=== PATIENT | male | born 1990 | race Caucasian/White ===

== ENCOUNTER 2020-10-24 16:44 | Emergency (ER) | payer OTHER ==
--- NOTE | 2020-10-24 18:13 | ED Physician Documentation ---
History of Present Illness - Stated complaint Stated Complaint: CHEST TIGHTNESS - Chief complaint Chief Complaint: Cardiac - History obtained from History obtained from: Patient - History of Present Illness Timing: Today Pain level max: 0 Pain level now: 0 - Additonal information Additional information: Patient is a 30-year-old male who presents to the emergency department with palpitations and the feeling that he cannot get a full breath. This been ongoing intermittently for the past week or so. He has recently traveled to [place] and back. This was occurring there, states he had a work-up in the emergency department twice and was treated for anxiety. He states that sometimes his hands and arms cramp and he feels numbness across his chest. He states he is under increased stress, but states it is "good stress". He states he does not have a history of anxiety. No leg pain. No history of blood clots. He states he does not have any chest pain. Review of Systems Ten Systems: 10 systems reviewed and negative Constitutional: denies: Fever, Chills Eyes: denies: Photophobia Ears: denies: Ear pain Nose: denies: Rhinorrhea / runny nose, Congestion Throat: denies: Sore throat Respiratory: denies: Cough GI: denies: Abdominal Pain, Nausea, Vomiting, Diarrhea : denies: Dysuria Skin: denies: Rash Musculoskeletal: denies: Neck pain, Back pain Neurologic: denies: Headache PD PAST MEDICAL HISTORY - Past Medical History Past Medical History: Yes Psych: Anxiety - Past Surgical History Past Surgical History: No - Present Medications Home Medications: Ambulatory Orders Medication Instructions Recorded Confirmed LORazepam [Ativan] 0.5 mg PO BID PRN #10 tablet 10/24/20 - Allergies Allergies/Adverse Reactions: Allergies Allergy/AdvReac Type Severity Reaction Status Date / Time No Known Drug Allergies Allergy Verified 10/24/20 16:49 - Social History Does the pt smoke?: No Smoking Status: Never smoker Does the pt drink ETOH?: Yes Does the pt have substance abuse?: No - Immunizations Immunizations are current?: Yes PD ED PE NORMAL - Vitals Vital signs reviewed: Yes - General General: Alert and oriented X 3, No acute distress, Well developed/nourished - HEENT HEENT: PERRL, Moist mucous membranes - Neck Neck: Supple, no meningeal sign - Cardiac Cardiac: RRR, No murmur, Strong equal pulses - Respiratory Respiratory: No respiratory distress, Clear bilaterally - Abdomen Abdomen: Soft, Non tender, Non distended - Derm Derm: Warm and dry, No rash - Extremities Extremities: No edema, No calf tenderness / cord - Neuro Neuro: Alert and oriented X 3 - Psych Psych: Other (Patient appears very anxious, mildly hyperverbal. Mildly tachypneic) Results - Vitals Vitals: Vital Signs - 24 hr 10/24/20 10/24/20 10/24/20 16:49 18:53 20:00 Temperature 36.7 C 36.6 C 36.7 C Heart Rate 76 79 72 Respiratory 19 16 22 Rate Blood Pressure 148/90 H 142/86 H 116/88 H O2 Saturation 100 99 97 Oxygen O2 Source Room air - EKG (time done) 1649 Rate: Rate (enter#) (76) Rhythm: NSR [place]: Normal Intervals: Normal [place] QRS: Normal Ischemia: Normal ST segments - Labs Labs: Laboratory Tests 10/24/20 10/24/20 10/24/20 18:09 18:09 18:09 WBC 10.5 RBC 5.31 Hgb 16.7 Hct 45.8 MCV 86.3 MCH 31.5 H MCHC 36.5 H RDW 11.3 L Plt Count 301 MPV 10.1 Neut # (Auto) 6.8 H Lymph # (Auto) 2.7 Davis # (Auto) 0.9 Eos # (Auto) 0.1 Baso # (Auto) 0.0 Absolute Nucleated RBC 0.00 Nucleated RBC % 0.0 Sodium 140 Potassium 3.3 L Chloride 105 Carbon Dioxide 22 Anion Gap 13.0 BUN 13 Creatinine 0.9 Estimated GFR (MDRD) 99 Glucose 92 Calcium 10.0 Phosphorus 1.9 L Magnesium 2.1 Total Bilirubin 1.2 H AST 18 ALT 19 Alkaline Phosphatase 46 Troponin I High Sens 2.8 Total Protein 7.6 Albumin 4.8 Globulin 2.8 Albumin/Globulin Ratio 1.7 Lipase 26 - Rads (name of study) cxr Radiology: Prelim report reviewed, EMP read contemporaneously, See rad report (No acute abnormality) CT pulmonary angio Radiology: Prelim report reviewed, EMP read contemporaneously, See rad report (No acute abnormality. No PE.) PD MEDICAL DECISION MAKING - ED course Complexity details: reviewed results, re-evaluated patient, considered differential (No ST elevation MS, no aortic dissection, no PE, no tension pneumothorax, no aortic aneurysm), d/w patient ED course: Symptoms resolved with Ativan. Feels much better. No significant lab abnormalities. Did have recent travel to and from [place] with 2 reportedly negative work-ups there. CT does not show any evidence of PE. Appears to be having panic attacks. We will have him follow-up with his doctor for further care. Patient counseled regarding signs and symptoms for which I believe and urgent re-evaluation would be necessary. Patient with good understanding of and agreement to plan and is comfortable going home at this time This document was made in part using voice recognition software. While efforts are made to proofread this document, sound alike and grammatical errors may occur. Departure - Departure Disposition: 01 Home, Self Care Clinical Impression: Palpitations, Anxiety Condition: Good Instructions: ED Stress React, ED Palpitations Follow-Up: your,doctor in 1 week [Other] Prescriptions: LORazepam [Ativan] 0.5 mg PO BID PRN #10 tablet PRN Reason: Anxiety Comments: Your testing is all normal today including your chest x-ray, CT of the chest, EKG and laboratory testing. Follow-up with your doctor for further care. This does appear to be a likely stress reaction. Will write you a small amount of medication for breakthrough anxiety. Do not drive or operate heavy machinery while taking the ativan Discharge Date/Time: 10/24/20 20:28
[2020-10-24] MEDS ORDERED: IOVERSOL 320 100 ML VIAL IVP ONE ×2 (18:15→19:12)
[2020-10-24 18:26] LABS: BASOPHILS % (AUTO) 0.3 %; EOSINOPHILS # (AUTO) 0.1 10^3/uL (0.0-0.7); EOSINOPHILS % (AUTO) 0.6 %; HCT - HEMATOCRIT 45.8 % (42.0-52.0); HGB - HEMOGLOBIN 16.7 g/dL (14.0-18.0); LYMPHOCYTES # (AUTO) 2.7 10^3/uL (1.5-3.5); LYMPHOCYTES % (AUTO) 25.2 %; MEAN CORPUSCULAR HEMOGLOBIN 31.5 pg (27.0-31.0); MEAN CORPUSCULAR HGB CONC 36.5 g/dL (32.0-36.0); MEAN CORPUSCULAR VOLUME 86.3 fL (80.0-94.0); MEAN PLATELET VOLUME 10.1 fL (7.4-11.4); MONOCYTES # (AUTO) 0.9 10^3/uL (0.0-1.0); MONOCYTES % (AUTO) 8.9 %; NEUTROPHILS # (AUTO) 6.8 10^3/uL (1.5-6.6); NEUTROPHILS % (AUTO) 64.6 %; PLT - PLATELET COUNT 301 10^3/uL (130-450); RED BLOOD COUNT 5.31 10^6/uL (4.70-6.10); RED CELL DISTRIBUTION WIDTH 11.3 % (12.0-15.0); WHITE BLOOD COUNT 10.5 x10^3/uL (4.8-10.8)
--- NOTE | 2020-10-24 18:29 | XRAY Report ---
PROCEDURE: Chest 1 View X-Ray INDICATIONS: Chest Pain TECHNIQUE: One view of the chest was acquired. COMPARISON: None. FINDINGS: Surgical changes and devices: None. Lungs and pleura: No pleural effusions or pneumothorax. Lungs are clear. Mediastinum: Mediastinal contours appear normal. Heart size is normal. Bones and chest wall: No suspicious bony lesions. Overlying soft tissues appear unremarkable. IMPRESSION: 1. No acute cardiopulmonary disease. Reviewed by: Luciano Ramirez MD on 10/24/2020 6:28 PM PDT Approved by: Luciano Ramirez MD on 10/24/2020 6:28 PM PDT Station ID: [id number]
[2020-10-24] MEDS ORDERED: LORazepam 2 MG/ML VIAL IVP STA (18:42)
[2020-10-24 18:44] LABS: ALBUMIN 4.8 g/dL (3.2-5.5); ALBUMIN/GLOBULIN RATIO 1.7 (1.0-2.2); BILIRUBIN,TOTAL 1.2 mg/dL (0.2-1.0); CREATININE 0.9 mg/dL (0.6-1.2); MAGNESIUM 2.1 mg/dL (1.7-2.8); PHOSPHORUS 1.9 mg/dL (2.5-4.6); POTASSIUM 3.3 mmol/L (3.5-5.0); TOTAL PROTEIN 7.6 g/dL (6.7-8.2)
--- NOTE | 2020-10-24 19:37 | CT Report ---
PROCEDURE: ANGIO CHEST W/WO INDICATIONS: dyspnea, chest pain CONTRAST: IV CONTRAST: Optiray 320 ml: 80 PO CONTRAST: *NO PO CONTRAST TECHNIQUE: After the administration of intravenous contrast, 2 mm thick sections acquired from the pulmonary api hayley to the posterior costophrenic angles. 3-dimensional maximum intensity projection (MIP) coronal a nd sagittal reformats were then acquired through the thorax. For radiation dose reduction, the follow ing was used: automated exposure control, adjustment of mA and/or kV according to patient size. COMPARISON: None. FINDINGS: Image quality: Excellent. Pulmonary arteries: Pulmonary arteries are normal in size, and demonstrate no definite intraluminal filling defects to suggest central pulmonary embolism. Lungs and pleura: No consolidation or other acute air space opacities. No pleural effusions or pneumo thorax. Central and peripheral airways are patent. Mediastinum: Heart size is normal, without pericardial effusion. No mediastinal or hilar adenopathy . There is indistinct soft tissue within the anterior mediastinum likely representing residual thymu s. Thoracic aorta is normal in caliber and enhancement. Esophagus is normal in caliber, without hiat al hernia. Bones and chest wall: No suspicious bony lesions. Ribs and thoracic spine appear intact throughout. No axillary or supraclavicular adenopathy. Abdomen: Visualized upper abdominal solid organs appear normal in the early arterial phase of enhanc ement. IMPRESSION: 1. No evidence of pulmonary embolism. 2. No acute airspace disease in the lungs. Reviewed by: Luciano Ramirez MD on 10/24/2020 7:35 PM PDT Approved by: Luciano Ramirez MD on 10/24/2020 7:35 PM PDT Station ID: [id number]
[2020-10-24 20:03] VITALS: BP 116/88
== END 2020-10-24 20:28 | disposition home or self-care (01) ==
LOC: ED 16:44
DX: F41.9 Anxiety disorder, unspecified (principal); R00.2 Palpitations
CPT/HCPCS: 36415; 71045; 71275; 80053; 83690; 83735; 84100; 84484; 85025; 93005; 96374; 99284; J2060; Q9967